=== PATIENT | female | born 1960 | race Caucasian/White ===

== ENCOUNTER 2017-12-21 07:00 | Emergency (ER) | payer OTHER ==
[2017-12-21] MEDS: LIDOCAINE/MYLANTA 40 ML BTL PO (07:49)
[2017-12-21] MEDS: KETOROLAC 15 MG INJ IV (07:49)
[2017-12-21] MEDS: SOD CHLORIDE 0.9% 1,000 ML IV (07:49)
[2017-12-21] MEDS: ONDANSETRON 4 MG INJ IV (07:49)
[2017-12-21] MEDS: BELLADONNA/PHENOBARBITAL TAB PO (07:49)
[2017-12-21 07:51] LABS: WHITE BLOOD COUNT 9.6 10^3/ul (4.8-10.8)
[2017-12-21 07:51] LABS: ADD MAN DIFF? NO; BASOPHIL # 0.1 10^3/ul (0.0-0.1); BASOPHILS % 0.7 % (0.0-2.0); EOSINOPHILS # 0.2 10^3/ul (0.0-0.5); EOSINOPHILS % 2.3 % (0.0-7.0); HEMATOCRIT 35.7 % (37.0-47.0); HEMOGLOBIN 11.5 g/dl (12.0-16.0); MEAN CORPUSCULAR HEMOGLOBIN 26.4 pg (29.0-33.0); MEAN CORPUSCULAR HGB CONC 32.2 g/dl (32.0-37.0); MEAN CORPUSCULAR VOLUME 82.1 fl (82.0-101.0); MEAN PLATELET VOLUME 9.5 fl (7.4-10.4); MONOCYTE # 0.7 10^3/ul (0.3-0.9); NEUTROPHIL # 6.6 10^3/ul (1.6-7.5); NEUTROPHILS % 68.7 % (39.0-77.0); PLATELET COUNT 493 10^3/UL (140-415); RED BLOOD COUNT 4.35 10^6/ul (4.20-5.40)
[2017-12-21 08:17] LABS: ALANINE AMINOTRANSFERASE 29 IU/L (13-69); ALBUMIN/GLOBULIN RATIO 0.88; ALKALINE PHOSPHATASE 140 IU/L (42-121); ANION GAP 16 (8-16); ASPARTATE AMINO TRANSFERASE 21 IU/L (15-46); BILIRUBIN,INDIRECT 0.1 mg/dl (0-1.1); BILIRUBIN,TOTAL 0.1 mg/dl (0.2-1.3); BLOOD UREA NITROGEN 35 mg/dl (7-20); CALCIUM 8.9 mg/dl (8.4-10.2); CARBON DIOXIDE 21 mmol/L (21-31); CHLORIDE 102 mmol/L (97-110); GLUCOSE 198 mg/dl (70-220); LIPASE 391 U/L (23-300); POTASSIUM 3.7 mmol/L (3.5-5.1); SODIUM 135 mmol/L (135-144); TOTAL PROTEIN 6.4 g/dl (6.1-8.1)
[2017-12-21 08:37] LABS: ADD UMIC YES; UR AMORPHOUS CRYSTAL FEW /HPF (NONE SEEN); UR ASCORBIC ACID NEGATIVE (NEGATIVE); UR BACTERIA MANY /HPF (NONE SEEN); UR BILIRUBIN (Dip) NEGATIVE (NEGATIVE); UR BLOOD (Dip) NEGATIVE (NEGATIVE); UR CLARITY SLIGHTLY CLOUDY (CLEAR); UR COLOR YELLOW (YELLOW); UR GLUCOSE (Dip) 3+ mg/dL (NEGATIVE); UR KETONES (Dip) NEGATIVE (NEGATIVE); UR LEUKOCYTE ESTERASE (Dip) TRACE Leu/ul (NEGATIVE); UR NITRITE (Dip) NEGATIVE (NEGATIVE); UR RBC 2 /HPF (0-5); UR SPECIFIC GRAVITY (Dip) 1.005 (1.003-1.030); UR TOTAL PROTEIN (Dip) 3+ mg/dl (NEGATIVE); UR UROBILINOGEN (Dip) NEGATIVE (NEGATIVE); UR WBC 28 /HPF (0-5)
[2017-12-21] MEDS: CEFTRIAXONE 1 GM/50 ML (PMX) 50 ML IVPB (09:14)
== END 2017-12-21 09:48 | disposition home or self-care (01) ==
LOC: E/R 07:00
DX: N39.0 Urinary tract infection, site not specified (principal); R19.7 Diarrhea, unspecified; E86.0 Dehydration; I10 Essential (primary) hypertension; E03.9 Hypothyroidism, unspecified; E11.9 Type 2 diabetes mellitus without complications; E66.9 Obesity, unspecified; Z68.34 Body mass index [BMI] 34.0-34.9, adult; Z79.4 Long term (current) use of insulin
CPT/HCPCS: 36415; 80053; 81001; 83690; 85025; 96361; 96365; 96375; 99284-25

== ENCOUNTER 2018-08-15 04:28 | Inpatient (IN) | payer OTHER ==
[2018-08-15] MEDS: ASPIRIN 325 MG TAB PO (04:59)
[2018-08-15] MEDS: ONDANSETRON 4 MG INJ IV (05:00)
[2018-08-15] MEDS: NITROGLYCERIN 2% 1 GM OINT PKT TD (05:00)
[2018-08-15] MEDS: morphine 4 MG/ML VIAL IV (05:00)
[2018-08-15 05:15] LABS: ADD MAN DIFF? NO
[2018-08-15 05:17] LABS: BASOPHIL # 0.1 10^3/ul (0.0-0.1); BASOPHILS % 0.7 % (0.0-2.0); EOSINOPHILS # 0.4 10^3/ul (0.0-0.5); EOSINOPHILS % 4.3 % (0.0-7.0); HEMATOCRIT 37.4 % (37.0-47.0); HEMOGLOBIN 12.1 g/dl (12.0-16.0); LYMPHOCYTES # 3.3 10^3/ul (0.8-2.9); LYMPHOCYTES % 32.1 % (15.0-51.0); MEAN CORPUSCULAR HEMOGLOBIN 26.3 pg (29.0-33.0); MEAN CORPUSCULAR HGB CONC 32.4 g/dl (32.0-37.0); MEAN CORPUSCULAR VOLUME 81.3 fl (82.0-101.0); MEAN PLATELET VOLUME 9.5 fl (7.4-10.4); MONOCYTE # 0.7 10^3/ul (0.3-0.9); MONOCYTES % 6.3 % (0.0-11.0); NEUTROPHIL # 5.8 10^3/ul (1.6-7.5); NEUTROPHILS % 56.2 % (39.0-77.0); PLATELET COUNT 494 10^3/UL (140-415); RED CELL DISTRIBUTION WIDTH 13.9 % (11.5-14.5)
[2018-08-15 05:17] LABS: WHITE BLOOD COUNT 10.2 10^3/ul (4.8-10.8)
[2018-08-15] MEDS ORDERED: ACETAMINOPHEN 325 MG TAB PO (06:00)
[2018-08-15] MEDS ORDERED: ONDANSETRON 4 MG INJ IV ×2 (06:00→06:30)
[2018-08-15 06:01] LABS: ALANINE AMINOTRANSFERASE 12 IU/L (13-69); ALBUMIN 3.7 g/dl (3.3-4.9); ALBUMIN/GLOBULIN RATIO 0.88; ALKALINE PHOSPHATASE 183 IU/L (42-121); ANION GAP 12 (5-13); ASPARTATE AMINO TRANSFERASE 19 IU/L (15-46); BILIRUBIN,INDIRECT 0.2 mg/dl (0-1.1); BILIRUBIN,TOTAL 0.2 mg/dl (0.2-1.3); BLOOD UREA NITROGEN 63 mg/dl (7-20); CALCIUM 8.8 mg/dl (8.4-10.2); CARBON DIOXIDE 21 mmol/L (21-31); CHLORIDE 101 mmol/L (97-110); CREATININE 3.63 mg/dl (0.44-1.00); Estimated GFR 13 mL/min (>60); GLUCOSE 256 mg/dl (70-220); POTASSIUM 4.2 mmol/L (3.5-5.1); SODIUM 134 mmol/L (135-144); TOTAL PROTEIN 7.9 g/dl (6.1-8.1)
[2018-08-15] MEDS: METOCLOPRAMIDE 10 MG INJ IV (06:03)
[2018-08-15 06:12] LABS: TROPONIN-I < 0.012 ng/ml (0.000-0.120)
[2018-08-15] MEDS ORDERED: BISACODYL (EC) 5 MG TAB PO (06:30)
[2018-08-15] MEDS ORDERED: NITROGLYCERIN (SL) 0.4 MG TAB SL (06:30)
[2018-08-15] MEDS ORDERED: DOCUSATE SODIUM 100 MG CAP PO (06:30)
[2018-08-15] MEDS ORDERED: NACL 0.9% 3 ML SYG IV (06:30)
[2018-08-15 06:57] LABS: MAGNESIUM 2.5 mg/dl (1.7-2.5)
[2018-08-15 06:57] LABS: HDL CHOLESTEROL 36 mg/dl (37-92); TRIGLYCERIDES 499 mg/dl (0-149)
[2018-08-15] MEDS: traZODone 50 MG TAB PO (07:10)
[2018-08-15 07:11] LABS: CHOLESTEROL 326 mg/dl (100-200); LDL CHOLESTEROL,CALCULATED 190 mg/dl
[2018-08-15 07:38] LABS: HEMOGLOBIN A1C 11.8 % (0-5.9)
[2018-08-15] MEDS: SOD CHLORIDE 0.9% 1,000 ML IV ×2 (09:10→18:37)
[2018-08-15] MEDS ORDERED: GLUCOSE GEL 15 GRAM TUBE PO ×2 (13:00)
[2018-08-15] MEDS ORDERED: GLUCOSE GEL 15 GRAM TUBE BUCCAL (13:00)
[2018-08-15] MEDS ORDERED: DEXTROSE 50% 50 ML SYRINGE IV ×2 (13:00)
[2018-08-15] MEDS ORDERED: GLUCAGON 1 MG INJ IM (13:00)
[2018-08-15] MEDS: AMLODIPINE 2.5 MG TAB PO (13:00)
[2018-08-15] MEDS: morphine 2 MG INJ IV (15:30)
[2018-08-15] MEDS: METOCLOPRAMIDE 5 MG TAB PO (17:29)
[2018-08-15] MEDS: PANTOPRAZOLE (EC) 40 MG TAB PO (17:29)
[2018-08-15] MEDS: SUCRALFATE 1 GM TAB PO (17:29)
[2018-08-15] MEDS: INSULIN ASPART [NOVOLOG] 3 ML PEN SC ×3 (17:33→21:22)
[2018-08-15 18:28] LABS: TROPONIN-I < 0.012 ng/ml (0.000-0.120)
[2018-08-15] MEDS: ATORVASTATIN 20 MG TAB PO (21:07)
[2018-08-15] MEDS: FISH OIL 1,000 MG CAP PO (21:07)
[2018-08-15] MEDS: HEPARIN 5,000 UNIT/1 ML VIAL SC (21:22)
[2018-08-16] MEDS: SUCRALFATE 1 GM TAB PO ×4 (00:05→17:06)
[2018-08-16 01:47] LABS: TROPONIN-I < 0.012 ng/ml (0.000-0.120)
[2018-08-16] MEDS: ACCU-CHEK XX ×6 (02:38→21:05)
[2018-08-16] MEDS: INSULIN ASPART [NOVOLOG] 3 ML PEN SC ×9 (03:11→21:03)
[2018-08-16] MEDS: PANTOPRAZOLE (EC) 40 MG TAB PO ×2 (05:31→17:06)
[2018-08-16] MEDS: SOD CHLORIDE 0.9% 1,000 ML IV ×2 (05:37→20:53)
[2018-08-16] MEDS: ACETAMINOPHEN 325 MG TAB PO (05:41)
[2018-08-16] MEDS: METOCLOPRAMIDE 5 MG TAB PO ×3 (06:37→17:06)
[2018-08-16] MEDS: LEVOTHYROXINE 112 MCG TAB PO (06:37)
[2018-08-16] MEDS ORDERED: INSULIN GLARGINE 60 UNIT SC (08:00)
[2018-08-16] MEDS: FISH OIL 1,000 MG CAP PO ×2 (08:22→20:57)
[2018-08-16] MEDS: AMLODIPINE 2.5 MG TAB PO (08:23)
[2018-08-16] MEDS: FERROUS SULFATE (EC) 325 MG TAB PO (08:23)
[2018-08-16] MEDS: SERTRALINE 50 MG TAB PO (08:23)
[2018-08-16] MEDS: INSULIN GLARGINE [LANTus] (100 UNITS/ML) SYG SC (08:36)
[2018-08-16] MEDS: HEPARIN 5,000 UNIT/1 ML VIAL SC ×2 (08:36→21:00)
[2018-08-16] MEDS ORDERED: NON-FORMULARY/PATIENT OWN MED (Sitagliptin* (Januvia*) 25 MG) PO (11:30)
[2018-08-16] MEDS: NIFEdipine (XL) 30 MG TAB PO (20:58)
[2018-08-16] MEDS: ATORVASTATIN 40 MG TAB PO (20:58)
[2018-08-16] MEDS: EZETIMIBE 10 MG TAB PO (20:58)
[2018-08-16] MEDS ORDERED: ATORVASTATIN 40 MG TAB PO (21:00)
[2018-08-17] MEDS: SUCRALFATE 1 GM TAB PO ×4 (00:53→17:20)
[2018-08-17] MEDS: ACCU-CHEK XX ×5 (02:00→21:01)
[2018-08-17 05:20] LABS: ADD MAN DIFF? NO
[2018-08-17 05:22] LABS: WHITE BLOOD COUNT 8.8 10^3/ul (4.8-10.8)
[2018-08-17 05:22] LABS: BASOPHIL # 0.1 10^3/ul (0.0-0.1); BASOPHILS % 0.9 % (0.0-2.0); EOSINOPHILS # 0.4 10^3/ul (0.0-0.5); EOSINOPHILS % 4.3 % (0.0-7.0); HEMATOCRIT 33.7 % (37.0-47.0); HEMOGLOBIN 10.9 g/dl (12.0-16.0); LYMPHOCYTES # 2.5 10^3/ul (0.8-2.9); LYMPHOCYTES % 28.3 % (15.0-51.0); MEAN CORPUSCULAR HEMOGLOBIN 26.6 pg (29.0-33.0); MEAN CORPUSCULAR HGB CONC 32.3 g/dl (32.0-37.0); MEAN CORPUSCULAR VOLUME 82.2 fl (82.0-101.0); MEAN PLATELET VOLUME 9.9 fl (7.4-10.4); MONOCYTE # 0.7 10^3/ul (0.3-0.9); MONOCYTES % 8.1 % (0.0-11.0); NEUTROPHIL # 5.1 10^3/ul (1.6-7.5); NEUTROPHILS % 58.2 % (39.0-77.0); PLATELET COUNT 410 10^3/UL (140-415); RED CELL DISTRIBUTION WIDTH 14.1 % (11.5-14.5)
[2018-08-17] MEDS: PANTOPRAZOLE (EC) 40 MG TAB PO ×2 (05:23→17:20)
[2018-08-17 05:47] LABS: ANION GAP 7 (5-13); BLOOD UREA NITROGEN 63 mg/dl (7-20); CALCIUM 8.4 mg/dl (8.4-10.2); CARBON DIOXIDE 21 mmol/L (21-31); CHLORIDE 107 mmol/L (97-110); CREATININE 4.03 mg/dl (0.44-1.00); Estimated GFR 11 mL/min (>60); GLUCOSE 302 mg/dl (70-220); MAGNESIUM 3.4 mg/dl (1.7-2.5); PHOSPHORUS 4.7 mg/dl (2.5-4.9); POTASSIUM 5.6 mmol/L (3.5-5.1); SODIUM 135 mmol/L (135-144)
[2018-08-17] MEDS: LEVOTHYROXINE 112 MCG TAB PO (06:19)
[2018-08-17] MEDS: METOCLOPRAMIDE 5 MG TAB PO ×3 (06:19→17:20)
[2018-08-17 06:57] LABS: ADD UMIC YES; UR ASCORBIC ACID NEGATIVE (NEGATIVE); UR BACTERIA MANY /HPF (NONE SEEN); UR BILIRUBIN (Dip) NEGATIVE (NEGATIVE); UR BLOOD (Dip) NEGATIVE (NEGATIVE); UR CLARITY SLIGHTLY CLOUDY (CLEAR); UR COLOR STRAW (YELLOW); UR GLUCOSE (Dip) 3+ mg/dL (NEGATIVE); UR KETONES (Dip) NEGATIVE (NEGATIVE); UR LEUKOCYTE ESTERASE (Dip) NEGATIVE Leu/ul (NEGATIVE); UR NITRITE (Dip) NEGATIVE (NEGATIVE); UR RBC 0 /HPF (0-5); UR SPECIFIC GRAVITY (Dip) 1.009 (1.003-1.030); UR SQUAMOUS EPITHELIAL CELL FEW /HPF (FEW); UR TOTAL PROTEIN (Dip) 3+ mg/dl (NEGATIVE); UR UROBILINOGEN (Dip) NEGATIVE (NEGATIVE); UR WBC 30 /HPF (0-5)
[2018-08-17] MEDS: FISH OIL 1,000 MG CAP PO ×2 (08:01→20:40)
[2018-08-17] MEDS: FERROUS SULFATE (EC) 325 MG TAB PO (08:02)
[2018-08-17] MEDS: SERTRALINE 50 MG TAB PO (08:02)
[2018-08-17] MEDS: NIFEdipine (XL) 30 MG TAB PO (08:03)
[2018-08-17] MEDS: ASPIRIN (EC) 81 MG TAB PO (08:15)
[2018-08-17] MEDS: HEPARIN 5,000 UNIT/1 ML VIAL SC ×2 (08:25→21:00)
[2018-08-17] MEDS: INSULIN ASPART [NOVOLOG] 3 ML PEN SC ×7 (08:25→21:00)
[2018-08-17] MEDS: INSULIN GLARGINE [LANTus] (100 UNITS/ML) SYG SC (08:25)
[2018-08-17 08:41] LABS: CREATININE,URINE RANDOM 43.62 mg/dl (20-320)
[2018-08-17 08:41] LABS: SODIUM,URINE RANDOM 43 mmol/L (30-90)
[2018-08-17] MEDS: LINAGLIPTIN 5 MG TABLET PO (08:41)
[2018-08-17] MEDS: SODIUM POLYSTYRENE 15 GM KIT (POWDER + SORBITOL) PO (12:13)
[2018-08-17 12:54] LABS: FREE T4 (FREE THYROXINE) 1.33 ng/dl (0.64-1.79)
[2018-08-17] MEDS: ATORVASTATIN 40 MG TAB PO (20:40)
[2018-08-17] MEDS: EZETIMIBE 10 MG TAB PO (20:41)
[2018-08-17] MEDS: PIOGLITAZONE 15 MG TAB PO (22:03)
[2018-08-18] MEDS: ACCU-CHEK XX ×5 (02:02→21:12)
[2018-08-18] MEDS: SUCRALFATE 1 GM TAB PO ×5 (02:07→23:42)
[2018-08-18] MEDS: morphine 2 MG INJ IV (05:04)
[2018-08-18] MEDS: PANTOPRAZOLE (EC) 40 MG TAB PO ×2 (05:04→17:41)
[2018-08-18] MEDS: METOCLOPRAMIDE 5 MG TAB PO ×3 (06:02→17:41)
[2018-08-18] MEDS: LEVOTHYROXINE 112 MCG TAB PO (06:02)
[2018-08-18 06:08] LABS: ADD MAN DIFF? NO
[2018-08-18 06:14] LABS: BASOPHIL # 0.1 10^3/ul (0.0-0.1); BASOPHILS % 0.9 % (0.0-2.0); EOSINOPHILS # 0.4 10^3/ul (0.0-0.5); EOSINOPHILS % 4.5 % (0.0-7.0); HEMATOCRIT 34.5 % (37.0-47.0); LYMPHOCYTES # 2.3 10^3/ul (0.8-2.9); LYMPHOCYTES % 28.4 % (15.0-51.0); MEAN CORPUSCULAR HEMOGLOBIN 25.9 pg (29.0-33.0); MEAN CORPUSCULAR HGB CONC 31.9 g/dl (32.0-37.0); MEAN CORPUSCULAR VOLUME 81.4 fl (82.0-101.0); MEAN PLATELET VOLUME 9.9 fl (7.4-10.4); MONOCYTE # 0.6 10^3/ul (0.3-0.9); MONOCYTES % 7.8 % (0.0-11.0); NEUTROPHIL # 4.7 10^3/ul (1.6-7.5); NEUTROPHILS % 58.2 % (39.0-77.0); PLATELET COUNT 436 10^3/UL (140-415); RED BLOOD COUNT 4.24 10^6/ul (4.20-5.40); RED CELL DISTRIBUTION WIDTH 13.8 % (11.5-14.5)
[2018-08-18 06:50] LABS: ANION GAP 7 (5-13); BLOOD UREA NITROGEN 60 mg/dl (7-20); CALCIUM 8.7 mg/dl (8.4-10.2); CARBON DIOXIDE 22 mmol/L (21-31); CHLORIDE 106 mmol/L (97-110); Estimated GFR 13 mL/min (>60); GLUCOSE 212 mg/dl (70-220); MAGNESIUM 3.1 mg/dl (1.7-2.5); PHOSPHORUS 4.8 mg/dl (2.5-4.9); POTASSIUM 4.5 mmol/L (3.5-5.1); SODIUM 135 mmol/L (135-144)
[2018-08-18] MEDS: FERROUS SULFATE (EC) 325 MG TAB PO (08:03)
[2018-08-18] MEDS: FISH OIL 1,000 MG CAP PO ×2 (08:03→20:31)
[2018-08-18] MEDS: PIOGLITAZONE 15 MG TAB PO ×2 (08:03→18:57)
[2018-08-18] MEDS: LINAGLIPTIN 5 MG TABLET PO (08:04)
[2018-08-18] MEDS: ASPIRIN (EC) 81 MG TAB PO (08:04)
[2018-08-18] MEDS: SERTRALINE 50 MG TAB PO (08:04)
[2018-08-18] MEDS: INSULIN ASPART [NOVOLOG] 3 ML PEN SC ×7 (08:35→20:40)
[2018-08-18] MEDS: INSULIN GLARGINE [LANTus] (100 UNITS/ML) SYG SC (08:35)
[2018-08-18] MEDS: HEPARIN 5,000 UNIT/1 ML VIAL SC ×2 (08:36→20:40)
[2018-08-18] MEDS: GABAPENTIN 100 MG CAP PO ×2 (12:08→20:30)
[2018-08-18 16:47] LABS: CREATININE, RANDOM URINE 47 mg/dL (20-275); MICROALBUMIN 278.1 mg/dL; MICROALBUMIN/CREATININE RATIO 5917 (<30)
[2018-08-18] MEDS: EZETIMIBE 10 MG TAB PO (20:30)
[2018-08-18] MEDS: ATORVASTATIN 40 MG TAB PO (20:31)
[2018-08-18] MEDS: TERBINAFINE 250 MG TAB PO (21:33)
[2018-08-19] MEDS: ACCU-CHEK XX ×3 (02:44→11:54)
[2018-08-19] MEDS: SUCRALFATE 1 GM TAB PO ×2 (05:04→12:05)
[2018-08-19] MEDS: PANTOPRAZOLE (EC) 40 MG TAB PO (05:04)
[2018-08-19] MEDS: METOCLOPRAMIDE 5 MG TAB PO ×2 (05:13→12:05)
[2018-08-19] MEDS: LEVOTHYROXINE 112 MCG TAB PO (05:13)
[2018-08-19 06:11] LABS: ANION GAP 5 (5-13); BLOOD UREA NITROGEN 61 mg/dl (7-20); CALCIUM 8.3 mg/dl (8.4-10.2); CARBON DIOXIDE 24 mmol/L (21-31); CHLORIDE 106 mmol/L (97-110); CREATININE 3.46 mg/dl (0.44-1.00); Estimated GFR 14 mL/min (>60); GLUCOSE 296 mg/dl (70-220); MAGNESIUM 2.9 mg/dl (1.7-2.5); PHOSPHORUS 5.5 mg/dl (2.5-4.9); POTASSIUM 4.9 mmol/L (3.5-5.1); SODIUM 135 mmol/L (135-144)
[2018-08-19] MEDS: INSULIN ASPART [NOVOLOG] 3 ML PEN SC ×4 (07:38→11:58)
[2018-08-19] MEDS: INSULIN GLARGINE [LANTus] (100 UNITS/ML) SYG SC (08:16)
[2018-08-19] MEDS: PIOGLITAZONE 30 MG TAB PO (08:50)
[2018-08-19] MEDS: FISH OIL 1,000 MG CAP PO (08:50)
[2018-08-19] MEDS: GABAPENTIN 100 MG CAP PO ×2 (08:51→12:05)
[2018-08-19] MEDS: ASPIRIN (EC) 81 MG TAB PO (08:51)
[2018-08-19] MEDS: SERTRALINE 50 MG TAB PO (08:51)
[2018-08-19] MEDS: TERBINAFINE 250 MG TAB PO (08:51)
[2018-08-19] MEDS: LINAGLIPTIN 5 MG TABLET PO (08:52)
[2018-08-19] MEDS: FERROUS SULFATE (EC) 325 MG TAB PO (08:52)
[2018-08-19] MEDS: HEPARIN 5,000 UNIT/1 ML VIAL SC (09:43)
[2018-08-19] MEDS: SEVELAMER CARBONATE 800 MG TABLET PO (12:05)
== END 2018-08-19 12:30 | disposition home or self-care (01) | DRG 206 ==
LOC: E/R 04:28 → 6WM 05:34
DX: M94.0 Chondrocostal junction syndrome [Tietze] (principal); N17.9 Acute kidney failure, unspecified; Z68.41 Body mass index [BMI] 40.0-44.9, adult; E87.0 Hyperosmolality and hypernatremia; N18.4 Chronic kidney disease, stage 4 (severe); E27.40 Unspecified adrenocortical insufficiency; E11.22 Type 2 diabetes mellitus with diabetic chronic kidney disease; E11.65 Type 2 diabetes mellitus with hyperglycemia; I10 Essential (primary) hypertension; E66.01 Morbid (severe) obesity due to excess calories; E87.6 Hypokalemia; E03.9 Hypothyroidism, unspecified; B35.1 Tinea unguium; Z89.512 Acquired absence of left leg below knee
CPT/HCPCS: 36415; 71045; 76775; 80048; 80053; 80061; 81001; 81003; 82043; 82962; 83036; 83735; 84100; 84155; 84300; 84439; 84443; 84484; 85025; 87086; 93005; 93306; 96374; 96375; 99285-25; G0378

== ENCOUNTER 2018-12-13 07:00 | Inpatient (IN) | payer OTHER ==
[2018-12-13 08:30] LABS: ADD MAN DIFF? NO
[2018-12-13] MEDS ORDERED: HEPARIN 1000 UNITS/ML 10 ML INJ CATHETER (08:30)
[2018-12-13] MEDS ORDERED: ACETAMINOPHEN 325 MG TAB PO (08:30)
[2018-12-13] MEDS ORDERED: SODIUM CHLORIDE 0.9% 1L BAG IV (08:30)
[2018-12-13] MEDS ORDERED: hydrALAzine 20 MG INJ IV (08:30)
[2018-12-13] MEDS ORDERED: ONDANSETRON 4 MG INJ IV ×2 (08:30→12:00)
[2018-12-13 08:33] LABS: WHITE BLOOD COUNT 12.3 10^3/ul (4.8-10.8)
[2018-12-13 08:33] LABS: BASOPHIL # 0.1 10^3/ul (0.0-0.1); BASOPHILS % 0.7 % (0.0-2.0); EOSINOPHILS # 0.5 10^3/ul (0.0-0.5); EOSINOPHILS % 4.4 % (0.0-7.0); HEMATOCRIT 37.1 % (37.0-47.0); HEMOGLOBIN 11.6 g/dl (12.0-16.0); LYMPHOCYTES # 1.8 10^3/ul (0.8-2.9); LYMPHOCYTES % 14.5 % (15.0-51.0); MEAN CORPUSCULAR HEMOGLOBIN 25.6 pg (29.0-33.0); MEAN CORPUSCULAR HGB CONC 31.3 g/dl (32.0-37.0); MEAN CORPUSCULAR VOLUME 81.7 fl (82.0-101.0); MEAN PLATELET VOLUME 9.6 fl (7.4-10.4); MONOCYTE # 0.9 10^3/ul (0.3-0.9); MONOCYTES % 7.1 % (0.0-11.0); NEUTROPHILS % 72.7 % (39.0-77.0); PLATELET COUNT 519 10^3/UL (140-415); RED BLOOD COUNT 4.54 10^6/ul (4.20-5.40); RED CELL DISTRIBUTION WIDTH 14.7 % (11.5-14.5)
[2018-12-13 08:53] LABS: ANION GAP 9 (5-13); BLOOD UREA NITROGEN 74 mg/dl (7-20); CALCIUM 7.7 mg/dl (8.4-10.2); CARBON DIOXIDE 22 mmol/L (21-31); CHLORIDE 105 mmol/L (97-110); CREATININE 5.99 mg/dl (0.44-1.00); Estimated GFR 7 mL/min (>60); GLUCOSE 263 mg/dl (70-220); POTASSIUM 4.7 mmol/L (3.5-5.1); SODIUM 136 mmol/L (135-144)
[2018-12-13 08:54] LABS: INR 0.89; PROTIME 12.1 Sec (11.9-14.9); PT RATIO 0.9
[2018-12-13 08:55] LABS: PARTIAL THROMBOPLASTIN TIME 37.1 Sec (23.0-35.0)
[2018-12-13] MEDS: hydrALAzine 20 MG INJ IV (08:57)
[2018-12-13 09:08] LABS: HAAIG REFLEX REFLEX FILED
[2018-12-13 10:05] LABS: HEPATITIS B SURFACE ANTIGEN NEGATIVE (NEGATIVE)
[2018-12-13 10:23] LABS: HEPATITIS B CORE ANTIBODY NEGATIVE (NEGATIVE); HEPATITIS C VIRAL ANTIBODY NEGATIVE (NEGATIVE); HIV 1&2 ANTIBODY NEGATIVE (NEGATIVE)
[2018-12-13] MEDS ORDERED: NACL 0.9% 3 ML SYG IV (12:00)
[2018-12-13] MEDS ORDERED: GLUCOSE GEL 15 GRAM TUBE PO ×2 (12:30)
[2018-12-13] MEDS ORDERED: GLUCOSE GEL 15 GRAM TUBE BUCCAL (12:30)
[2018-12-13] MEDS ORDERED: GLUCAGON 1 MG INJ IM (12:30)
[2018-12-13] MEDS ORDERED: DEXTROSE 50% 50 ML SYRINGE IV ×2 (12:30)
[2018-12-13] MEDS: INSULIN GLARGINE [LANTus] (100 UNITS/ML) SYG SC ×2 (13:00→14:58)
[2018-12-13] MEDS ORDERED: LIDOCAINE 1% (MDV) 20 ML INJ (13:21)
[2018-12-13] MEDS ORDERED: HEPARIN 1000 UNITS/ML 10 ML INJ (13:23)
[2018-12-13] MEDS ORDERED: CEFAZOLIN 1 GM/50 ML (PMX) 50 ML IVPB (13:47)
[2018-12-13] MEDS ORDERED: SOD CHLORIDE 0.9% 500 ML (13:56)
[2018-12-13] MEDS: CEFAZOLIN 1 GM/50 ML (PMX) 50 ML IVPB (14:00)
[2018-12-13] MEDS: ACETAMINOPHEN 325 MG TAB PO (15:07)
[2018-12-13] MEDS: INSULIN ASPART [NOVOLOG] 3 ML PEN SC ×3 (17:55→20:24)
[2018-12-13] MEDS: HEPARIN 1000 UNITS/ML 10 ML INJ CATHETER (19:25)
[2018-12-13] MEDS: ATORVASTATIN 40 MG TAB PO (20:22)
[2018-12-13] MEDS: traZODone 50 MG TAB PO (20:22)
[2018-12-13] MEDS: DOCUSATE SODIUM 100 MG CAP PO (20:22)
[2018-12-13] MEDS: HEPARIN 5,000 UNIT/1 ML VIAL SC (20:23)
[2018-12-13] MEDS: morphine 2 MG INJ IV (20:58)
[2018-12-14] MEDS: ACCU-CHEK XX ×3 (02:00→23:27)
[2018-12-14 05:02] LABS: ADD MAN DIFF? NO
[2018-12-14 05:05] LABS: BASOPHIL # 0.1 10^3/ul (0.0-0.1); BASOPHILS % 0.7 % (0.0-2.0); EOSINOPHILS # 0.3 10^3/ul (0.0-0.5); EOSINOPHILS % 3.4 % (0.0-7.0); HEMATOCRIT 30.4 % (37.0-47.0); HEMOGLOBIN 9.7 g/dl (12.0-16.0); LYMPHOCYTES # 2.1 10^3/ul (0.8-2.9); LYMPHOCYTES % 22.6 % (15.0-51.0); MEAN CORPUSCULAR HEMOGLOBIN 26.2 pg (29.0-33.0); MEAN CORPUSCULAR HGB CONC 31.9 g/dl (32.0-37.0); MEAN CORPUSCULAR VOLUME 82.2 fl (82.0-101.0); MEAN PLATELET VOLUME 9.7 fl (7.4-10.4); MONOCYTES % 10.1 % (0.0-11.0); NEUTROPHIL # 5.9 10^3/ul (1.6-7.5); NEUTROPHILS % 62.7 % (39.0-77.0); PLATELET COUNT 414 10^3/UL (140-415); RED CELL DISTRIBUTION WIDTH 14.6 % (11.5-14.5)
[2018-12-14 05:05] LABS: WHITE BLOOD COUNT 9.4 10^3/ul (4.8-10.8)
[2018-12-14 05:26] LABS: ALANINE AMINOTRANSFERASE 13 IU/L (13-69); ALBUMIN 2.8 g/dl (3.3-4.9); ALBUMIN/GLOBULIN RATIO 0.75; ALKALINE PHOSPHATASE 127 IU/L (42-121); ANION GAP 6 (5-13); ASPARTATE AMINO TRANSFERASE 16 IU/L (15-46); BILIRUBIN,INDIRECT 0.2 mg/dl (0-1.1); BILIRUBIN,TOTAL 0.2 mg/dl (0.2-1.3); BLOOD UREA NITROGEN 46 mg/dl (7-20); CALCIUM 7.4 mg/dl (8.4-10.2); CARBON DIOXIDE 26 mmol/L (21-31); CHLORIDE 106 mmol/L (97-110); CHOLESTEROL 217 mg/dl (100-200); CREATININE 4.57 mg/dl (0.44-1.00); Estimated GFR 10 mL/min (>60); GLUCOSE 317 mg/dl (70-220); HDL CHOLESTEROL 24 mg/dl (37-92); LDL CHOLESTEROL,CALCULATED 129 mg/dl; MAGNESIUM 1.8 mg/dl (1.7-2.5); PHOSPHORUS 5.2 mg/dl (2.5-4.9); POTASSIUM 3.9 mmol/L (3.5-5.1); SODIUM 138 mmol/L (135-144); TOTAL PROTEIN 6.5 g/dl (6.1-8.1); TRIGLYCERIDES 318 mg/dl (0-149)
[2018-12-14] MEDS: LEVOTHYROXINE 112 MCG TAB PO (06:11)
[2018-12-14 06:53] LABS: HEMOGLOBIN A1C 10.7 % (0-5.9)
[2018-12-14] MEDS: DOCUSATE SODIUM 100 MG CAP PO ×2 (08:51→23:25)
[2018-12-14] MEDS: FLUDROCORTISONE 0.1 MG TAB PO (08:51)
[2018-12-14] MEDS: SERTRALINE 50 MG TAB PO (08:51)
[2018-12-14] MEDS: NIFEdipine (XL) 60 MG TAB PO ×3 (09:00→14:49)
[2018-12-14] MEDS: HEPARIN 5,000 UNIT/1 ML VIAL SC ×2 (09:02→23:25)
[2018-12-14] MEDS: INSULIN ASPART [NOVOLOG] 3 ML PEN SC ×10 (09:03→22:09)
[2018-12-14] MEDS: INSULIN GLARGINE [LANTus] (100 UNITS/ML) SYG SC ×3 (09:05→19:32)
[2018-12-14] MEDS: NIFEdipine (XL) 30 MG TAB PO (14:30)
[2018-12-14] MEDS: LINAGLIPTIN 5 MG TABLET PO (17:44)
[2018-12-14 20:29] LABS: GLUCOSE 461 mg/dl (70-220)
[2018-12-14] MEDS: ALBUMIN HUMAN 25% 50 ML IV ×2 (21:37→22:12)
[2018-12-14] MEDS: ATORVASTATIN 40 MG TAB PO (23:25)
[2018-12-14] MEDS: traZODone 50 MG TAB PO (23:25)
[2018-12-15] MEDS: HEPARIN 1000 UNITS/ML 10 ML INJ CATHETER (00:07)
[2018-12-15] MEDS: ACCU-CHEK XX (02:26)
[2018-12-15] MEDS: morphine 2 MG INJ IV (04:53)
[2018-12-15 05:33] LABS: ADD MAN DIFF? NO
[2018-12-15 05:45] LABS: BASOPHIL # 0.1 10^3/ul (0.0-0.1); BASOPHILS % 0.7 % (0.0-2.0); EOSINOPHILS # 0.4 10^3/ul (0.0-0.5); EOSINOPHILS % 3.6 % (0.0-7.0); HEMATOCRIT 31.3 % (37.0-47.0); HEMOGLOBIN 9.9 g/dl (12.0-16.0); LYMPHOCYTES # 2.2 10^3/ul (0.8-2.9); LYMPHOCYTES % 19.5 % (15.0-51.0); MEAN CORPUSCULAR HEMOGLOBIN 25.8 pg (29.0-33.0); MEAN CORPUSCULAR HGB CONC 31.6 g/dl (32.0-37.0); MEAN CORPUSCULAR VOLUME 81.7 fl (82.0-101.0); MEAN PLATELET VOLUME 10.1 fl (7.4-10.4); MONOCYTE # 1.1 10^3/ul (0.3-0.9); MONOCYTES % 10.2 % (0.0-11.0); NEUTROPHIL # 7.3 10^3/ul (1.6-7.5); NEUTROPHILS % 65.4 % (39.0-77.0); PLATELET COUNT 404 10^3/UL (140-415); RED BLOOD COUNT 3.83 10^6/ul (4.20-5.40); RED CELL DISTRIBUTION WIDTH 14.7 % (11.5-14.5)
[2018-12-15 05:45] LABS: WHITE BLOOD COUNT 11.2 10^3/ul (4.8-10.8)
[2018-12-15] MEDS: LEVOTHYROXINE 112 MCG TAB PO (05:57)
[2018-12-15 06:12] LABS: ANION GAP 8 (5-13); BLOOD UREA NITROGEN 25 mg/dl (7-20); CALCIUM 7.8 mg/dl (8.4-10.2); CARBON DIOXIDE 29 mmol/L (21-31); CHLORIDE 99 mmol/L (97-110); CREATININE 3.26 mg/dl (0.44-1.00); Estimated GFR 15 mL/min (>60); GLUCOSE 254 mg/dl (70-220); POTASSIUM 3.6 mmol/L (3.5-5.1); SODIUM 136 mmol/L (135-144)
[2018-12-15] MEDS ORDERED: INSULIN GLARGINE [LANTus] (100 UNITS/ML) SYG SC ×3 (08:00→21:00)
[2018-12-15] MEDS: HEPARIN 5,000 UNIT/1 ML VIAL SC ×2 (09:13→20:47)
[2018-12-15] MEDS: INSULIN ASPART [NOVOLOG] 3 ML PEN SC ×7 (09:14→20:45)
[2018-12-15] MEDS: SERTRALINE 50 MG TAB PO (09:15)
[2018-12-15] MEDS: DOCUSATE SODIUM 100 MG CAP PO ×2 (09:15→20:47)
[2018-12-15] MEDS: LINAGLIPTIN 5 MG TABLET PO (09:16)
[2018-12-15] MEDS: NIFEdipine (XL) 90 MG TAB PO (09:16)
[2018-12-15] MEDS: INSULIN GLARGINE [LANTus] (100 UNITS/ML) SYG SC (20:46)
[2018-12-15] MEDS: traZODone 50 MG TAB PO (20:47)
[2018-12-15] MEDS: ATORVASTATIN 40 MG TAB PO (20:47)
[2018-12-16] MEDS: ACCU-CHEK XX ×2 (02:00→05:04)
[2018-12-16] MEDS: INSULIN ASPART [NOVOLOG] 3 ML PEN SC ×7 (02:58→18:00)
[2018-12-16 05:36] LABS: ANION GAP 9 (5-13); BLOOD UREA NITROGEN 40 mg/dl (7-20); CALCIUM 7.4 mg/dl (8.4-10.2); CARBON DIOXIDE 27 mmol/L (21-31); CHLORIDE 98 mmol/L (97-110); CREATININE 4.71 mg/dl (0.44-1.00); Estimated GFR 10 mL/min (>60); GLUCOSE 297 mg/dl (70-220); POTASSIUM 3.8 mmol/L (3.5-5.1); SODIUM 134 mmol/L (135-144)
[2018-12-16] MEDS: LEVOTHYROXINE 112 MCG TAB PO (06:11)
[2018-12-16] MEDS: NIFEdipine (XL) 90 MG TAB PO (08:36)
[2018-12-16] MEDS: HEPARIN 5,000 UNIT/1 ML VIAL SC (09:07)
[2018-12-16] MEDS: DOCUSATE SODIUM 100 MG CAP PO (09:08)
[2018-12-16] MEDS: SERTRALINE 50 MG TAB PO (09:08)
[2018-12-16] MEDS: LINAGLIPTIN 5 MG TABLET PO (09:08)
[2018-12-16] MEDS ORDERED: INSULIN GLARGINE [LANTus] (100 UNITS/ML) SYG SC (21:00)
== END 2018-12-16 18:43 | disposition home or self-care (01) | DRG 673 ==
LOC: E/R 07:00 → MS1 08:03
PROC: 0JH63XZ Insertion of Tunneled Vascular Access Device into Chest Subcutaneous Tissue and Fascia, Percutaneous Approach (ICD-10-PCS; 2018-12-13)
PROC: 02H633Z Insertion of Infusion Device into Right Atrium, Percutaneous Approach (ICD-10-PCS; 2018-12-13)
PROC: B214YZZ Fluoroscopy of Right Heart using Other Contrast (ICD-10-PCS; 2018-12-13)
PROC: 5A1D70Z Performance of Urinary Filtration, Intermittent, Less than 6 Hours Per Day (ICD-10-PCS; 2018-12-13)
PROC: 5A1D70Z Performance of Urinary Filtration, Intermittent, Less than 6 Hours Per Day (ICD-10-PCS; principal; 2018-12-14)
DX: I12.0 Hypertensive chronic kidney disease with stage 5 chronic kidney disease or end stage renal disease (principal); N18.6 End stage renal disease; E27.40 Unspecified adrenocortical insufficiency; Z68.41 Body mass index [BMI] 40.0-44.9, adult; E11.21 Type 2 diabetes mellitus with diabetic nephropathy; E11.42 Type 2 diabetes mellitus with diabetic polyneuropathy; E11.22 Type 2 diabetes mellitus with diabetic chronic kidney disease; E11.65 Type 2 diabetes mellitus with hyperglycemia; E66.9 Obesity, unspecified; E03.9 Hypothyroidism, unspecified; E78.5 Hyperlipidemia, unspecified; D63.1 Anemia in chronic kidney disease; F41.9 Anxiety disorder, unspecified; F32.9 Major depressive disorder, single episode, unspecified; Z79.4 Long term (current) use of insulin; Z79.82 Long term (current) use of aspirin; Z99.2 Dependence on renal dialysis; Z89.512 Acquired absence of left leg below knee; Z90.49 Acquired absence of other specified parts of digestive tract
CPT/HCPCS: 36415; 71045; 76937; 80048; 80053; 80061; 82947; 82962; 83036; 83735; 84100; 85025; 85610; 85730; 86703; 86704; 86709; 86803; 87340; 90935; 93005; 99285-25